=== PATIENT | male | born 1965 | race American Indian/Alaskan Native ===

== ENCOUNTER 2017-04-25 09:58 | Emergency (ER) | payer BC ==
[2017-04-25 10:28] VITALS: RESP 18
--- NOTE | 2017-04-25 11:42 | C.PDOC ---
History Of Present Illness 51 y/o male presents to the ER complaining of pain in the right foot which has been present for the past 4 days. Patient is also complaining of pain in the right arm which occurs in the morning for the past 1 week. Patient denies any trauma, fever, chest pain, and SOB, rash, penile discharge, dysuria. Patient notes this foot pain has occurred in the past also atrumatically and he notes that he ate at buffet and had a lot of shellfish the night prior. Time Seen by Provider: 04/25/17 11:03 Chief Complaint (Nursing): Lower Extremity Problem/Injury History Per: Patient History/Exam Limitations: no limitations Onset/Duration Of Symptoms: Days Current Symptoms Are (Timing): Still Present Severity: Moderate Past Medical History Reviewed: Historical Data, Nursing Documentation, Vital Signs Vital Signs: Last Vital Signs Temp 99.2 F 04/25/17 12:03 Pulse 61 04/25/17 12:03 Resp 18 04/25/17 12:03 BP 126/81 04/25/17 12:03 Pulse Ox 98 04/25/17 12:03 - Medical History PMH: No Chronic Diseases Surgical History: No Surg Hx Family History: States: No Known Family Hx - Social History Hx Alcohol Use: No Hx Substance Use: No - Immunization History Hx Tetanus Toxoid Vaccination: No Hx Influenza Vaccination: No Hx Pneumococcal Vaccination: No Review Of Systems Except As Marked, All Systems Reviewed And Found Negative. Constitutional: Negative for: Fever, Chills Cardiovascular: Negative for: Chest Pain Respiratory: Negative for: Shortness of Breath Musculoskeletal: Positive for: Arm Pain (right arm pain), Foot Pain (right foot pain) Physical Exam - Physical Exam Additional Physical Exam Comments: Constitutional: No acute distress. Head: Normocephalic. Atraumatic. Eyes: PERRL. ENT: Moist mucous membranes. Neck: Supple. Chest: No tenderness. GI: Soft. Nontender. Nondistended. Back: No CVA tenderness. Musculoskeletal: Full ROM in right shoulder and right ankle. Tenderness to the medial aspect of right ankle. Mild edema in the right ankle. Skin: No rash. Neurologic: Alert, no focal deficit. ED Course And Treatment O2 Sat by Pulse Oximetry: 100 (RA) Pulse Ox Interpretation: Normal Medical Decision Making Medical Decision Making: Plan: --X-Ray-Right Ankle --Toradol 60 mg IM Test Results X-ray shows no fracture or dislocation. Shows some edema. Advised f/u with primary care, suspect gout, NSAIDs for now, advised on diet. Instructed to return to ED immediately for fever, inability to range, chest pain , dyspnea, or any other problem. Disposition - Disposition Referrals: Ananth Hinkle MD [Staff Provider] - Disposition: HOME/ ROUTINE Disposition Time: 11:54 Condition: STABLE Prescriptions: Famotidine [Pepcid] 1 tab PO BID #14 tab Ibuprofen [Motrin] 600 mg PO Q6 #25 tab Instructions: Gout (ED), Arthralgia (ED) Forms: [employer] (Citizen [place]), Work Excuse - Clinical Impression Clinical Impression: Joint pain - Scribe Statement The provider has reviewed the documentation as recorded by the Gerri Garcia Provider Attestation: All medical record entries made by the Yariibedel were at my direction and personally dictated by me. I have reviewed the chart and agree that the record accurately reflects my personal performance of the history, physical exam, medical decision making, and the department course for this patient. I have also personally directed, reviewed, and agree with the discharge instructions and disposition.
[2017-04-25 12:04] VITALS: BP 126/81; PULSE 61; TEMP 99.2
--- NOTE | 2017-04-25 12:15 | RAD ---
PROCEDURE: Right Ankle Radiographs. HISTORY: ankle pain COMPARISON: None available. FINDINGS: BONES: No acute displaced fracture. JOINTS: No dislocation. SOFT TISSUES: Marked soft tissue swelling. No evidence of radiopaque foreign body. OTHER FINDINGS: None. IMPRESSION: Marked soft tissue swelling. No acute displaced fracture or dislocation identified. If high clinical index of suspicion for occult fracture, suggest cross-sectional imaging. Otherwise if symptoms persist or if there is clinical concern, x-ray follow-up in 7-10 days should be considered.
[2017-04-25 13:03] VITALS: O2SAT 100
== END 2017-04-25 12:31 | disposition home or self-care (01) ==
LOC: C.ER 09:58
DX: M25.50 Pain in unspecified joint (principal)
CPT/HCPCS: 73610; 96372; 99283; J1885